=== PATIENT | male | born 1970 | race Caucasian/White ===

== ENCOUNTER 2016-11-17 16:00 | Outpatient (RCR) | payer MEDICAID | END 2016-11-23 | disposition home or self-care (01) | LOC: M OUTALCOH 16:00 | PROVIDERS: ATTEND Psychiatry & Neurology Psychiatry | DX: F10.20 Alcohol dependence, uncomplicated (principal); F17.200 Nicotine dependence, unspecified, uncomplicated ==

== ENCOUNTER 2016-12-16 16:00 | Outpatient (RCR) | payer MEDICAID | END 2016-12-21 | LOC: M OUTALCOH 16:00 | PROVIDERS: ATTEND Psychiatry & Neurology Psychiatry | DX: F10.20 Alcohol dependence, uncomplicated (principal); F17.200 Nicotine dependence, unspecified, uncomplicated ==

== ENCOUNTER 2017-01-20 16:00 | Outpatient (RCR) | payer MEDICAID | END 2017-01-21 | LOC: M OUTALCOH 16:00 | PROVIDERS: ATTEND Psychiatry & Neurology Psychiatry | DX: F10.20 Alcohol dependence, uncomplicated (principal); F17.200 Nicotine dependence, unspecified, uncomplicated ==

== ENCOUNTER 2017-02-14 10:00 | Outpatient (RCR) | payer MEDICAID | END 2017-02-20 | LOC: M OUTALCOH 10:00 | PROVIDERS: ATTEND Psychiatry & Neurology Psychiatry | DX: F10.20 Alcohol dependence, uncomplicated (principal); F17.200 Nicotine dependence, unspecified, uncomplicated ==

== ENCOUNTER 2017-03-02 12:49 | Emergency (ER) | payer MEDICAID, OTHER ==
[~2017-03-02] VITALS: Ht 182.9 cm; Wt 115.2 kg
[2017-03-02] MEDS ORDERED: WARF-20 (12:59)
[2017-03-02] MEDS ORDERED: NICO1DIS (12:59)
[2017-03-02] MEDS ORDERED: CETI10TA (12:59)
[2017-03-02] MEDS ORDERED: BISO10TA6 (12:59)
[2017-03-02] MEDS ORDERED: BUPR300T34 (12:59)
[2017-03-02] MEDS: MORPHINE 4 MG/ML 1ML SYRINGE IV ONE ×2 (13:30→13:41)
[2017-03-02] MEDS ORDERED: ACETAMINOPHEN TAB 650MG DOSE (2X325MG) PO ONE (13:45)
[2017-03-02 13:52] LABS: MEAN CORPUSCULAR HGB CONC 33.6 g/dl (32.0-36.5); MEAN CORPUSCULAR VOLUME 98.2 fl (80.0-96.0); PLATELET COUNT, AUTOMATED 223 k/mm3 (150-450); RED CELL DISTRIBUTION WIDTH 12.9 % (11.5-14.5); WHITE BLOOD COUNT 10.4 K/mm3 (4.0-10.0)
[2017-03-02 14:07] LABS: INR 2.62
[2017-03-02 14:08] LABS: ANION GAP 6 MEQ/L (8-16); BLOOD UREA NITROGEN 17 MG/DL (7-18); CALCIUM LEVEL 9.5 MG/DL (8.5-10.1); CARBON DIOXIDE LEVEL 28 MEQ/L (21-32); CHLORIDE LEVEL 105 MEQ/L (98-107); CREATININE FOR GFR 1.24 MG/DL (0.70-1.30); GLOMERULAR FILTRATION RATE > 60.0 (>60); GLUCOSE, FASTING 103 MG/DL (70-105); SODIUM LEVEL 139 MEQ/L (136-145); URIC ACID 7.7 MG/DL (3.5-7.2)
--- NOTE | 2017-03-02 14:36 | REP ---
Left knee series: Four views. History: Pain. Findings: Four views of the left knee demonstrate mild patellar spurring. Bones, joints, and soft tissues are otherwise unremarkable. No fracture is seen. Impression: Mild patellar spurring. No acute bony abnormality. Signed by Juan J Arteaga MD 03/02/2017 04:34 P
[2017-03-02] MEDS ORDERED: COLC1TAB5 PO (14:45)
[2017-03-02] MEDS ORDERED: traMADol 50 MG TAB PO ONE (14:45)
[2017-03-02] MEDS ORDERED: COLCHICINE 0.6 MG TAB PO ONE (14:45)
[2017-03-02] MEDS ORDERED: ULTR50TA PO (14:45)
[2017-03-02 14:51] LABS: ERYTHROCYTE SEDIMENTATION RATE 28 mm/hr (0-15)
[2017-03-02 15:05] LABS: BASOPHILS 1 % (0-4)
[2017-03-02 15:16] VITALS: BP 121/84
== END 2017-03-02 15:17 | disposition home or self-care (01) ==
LOC: M ED 15:10
DX: M10.061 Idiopathic gout, right knee (principal); M10.062 Idiopathic gout, left knee; I10 Essential (primary) hypertension; F10.10 Alcohol abuse, uncomplicated; F99 Mental disorder, not otherwise specified; F17.210 Nicotine dependence, cigarettes, uncomplicated; Z79.899 Other long term (current) drug therapy; Z79.01 Long term (current) use of anticoagulants

== ENCOUNTER 2017-03-14 10:00 | Outpatient (RCR) | payer MEDICAID ==
[~2017-03-14 10:00] MED LIST: BISO10TA6; BUPR300T34; CETI10TA; COLC1TAB5 PO; NICO1DIS; ULTR50TA PO; WARF-20
== END 2017-03-23 ==
LOC: M OUTALCOH 10:00
PROVIDERS: ATTEND Psychiatry & Neurology Psychiatry
DX: F10.20 Alcohol dependence, uncomplicated (principal); F17.200 Nicotine dependence, unspecified, uncomplicated

== ENCOUNTER 2017-04-11 10:25 | Outpatient (RCR) | payer MEDICAID ==
[~2017-04-11 10:25] MED LIST changes: +COLC1TAB14 PO; -COLC1TAB5 PO; +NICO14DI24; -NICO1DIS; -ULTR50TA PO; +ULTR50TA8 PO
== END 2017-04-22 ==
LOC: M OUTALCOH 10:25
PROVIDERS: ATTEND Psychiatry & Neurology Psychiatry
DX: F10.20 Alcohol dependence, uncomplicated (principal); F17.200 Nicotine dependence, unspecified, uncomplicated

== ENCOUNTER 2017-05-02 10:09 | Outpatient (RCR) | payer MEDICAID | END 2017-05-23 | LOC: M OUTALCOH 10:09 | PROVIDERS: ATTEND Psychiatry & Neurology Psychiatry | DX: F17.200 Nicotine dependence, unspecified, uncomplicated (principal); F10.20 Alcohol dependence, uncomplicated ==

== ENCOUNTER 2017-05-30 15:14 | Outpatient (RCR) | payer MEDICAID | END 2017-06-23 | LOC: M OUTALCOH 15:14 | PROVIDERS: ATTEND Psychiatry & Neurology Psychiatry | DX: F10.20 Alcohol dependence, uncomplicated (principal); F17.200 Nicotine dependence, unspecified, uncomplicated ==